=== PATIENT | female | born 1970 | race Caucasian/White ===

== ENCOUNTER 2016-07-31 10:21 | Emergency (ER) | payer OTHER ==
[~2016-07-31] VITALS: Ht 167.6 cm; Wt 53.8 kg
[2016-07-31 10:34] VITALS: BP 108/68; PULSE 57; RESP 16; TEMP 98.3; O2SAT 100
[2016-07-31] MEDS ORDERED: XANA1TAB2 PO (10:47)
[2016-07-31] MEDS ORDERED: AMIT10TA6 PO (10:47)
--- NOTE | 2016-07-31 11:14 | PD ---
HPI Chief Complaint: GI Complaint Time Seen by Provider: 10:47 Travel History International Travel<30 days: No Contact w/Intl Traveler<30days: No Traveled to known affect area: No History of Present Illness HPI 45yo F with PMH of IBS and anxiety presents to the ED with c/o nonbloody diarrhea for 6 days. States occasional abdominal cramping. Denies any fever, chest pain, sob, n/v, focal weakness or numbness, urinary complaints, vaginal bleeding or discharge. Also states she feels very anxious and has been out of xanax and amitriptyline for a few weeks. States she just have not picked them [place]. PFSH Past Medical History Hx Anticoagulant Therapy: No Anxiety: Yes Diabetes: No Gastrointestinal Disorders: Yes (IBS) Influenza Vaccination: No ?: Not Social History Alcohol Use: No Tobacco Use: Yes (E-CIG) Substance Use: No Allergies-Medications (Allergen,Severity, Reaction): Coded Allergies: No Known Allergies (Unverified , 07/31/16) Reported Meds & Prescriptions Reported Meds & Active Scripts Active Reported Xanax (Alprazolam) 1 Mg Tab 1 Mg PO BID PRN Amitriptyline (Amitriptyline HCl) 10 Mg Tab 10 Mg PO HS Review of Systems Except as stated in HPI: all other systems reviewed are Neg Physical Exam Narrative GENERAL: 45yo F not in distress. SKIN: Focused skin assessment warm/dry. HEAD: Atraumatic. Normocephalic. CARDIOVASCULAR: Regular rate and rhythm. No murmur appreciated. RESPIRATORY: No accessory muscle use. Clear to auscultation. Breath sounds equal bilaterally. GASTROINTESTINAL: Abdomen soft, non-tender, nondistended. No rebound tenderness or guarding. MUSCULOSKELETAL: No obvious deformities. No clubbing. No cyanosis. No edema. NEUROLOGICAL: Awake and alert. No obvious cranial nerve deficits. Motor grossly within normal limits. Normal speech. PSYCHIATRIC: Appropriate mood and affect; insight and judgment normal. Data Data Last Documented VS Vital Signs Date Time Temp Pulse Resp B/P Pulse Ox O2 Delivery O2 Flow Rate FiO2 07/31/16 12:22 54 16 118/75 100 Room Air 07/31/16 10:34 98.3 Orders Complete Blood Count With Diff (07/31/16 11:07) Comprehensive Metabolic Panel (07/31/16 11:07) Ed Urine Pregnancytest Poc (07/31/16 11:07) Sodium Chlor 0.9% 1000 Ml Inj (Ns 1000 M (07/31/16 11:15) Lorazepam Inj (Ativan Inj) (07/31/16 11:15) Labs Laboratory Tests Test 07/31/16 11:22 White Blood Count 6.7 TH/MM3 Red Blood Count 4.76 MIL/MM3 Hemoglobin 13.8 GM/DL Hematocrit 40.1 % Mean Corpuscular Volume 84.4 FL Mean Corpuscular Hemoglobin 28.9 PG Mean Corpuscular Hemoglobin 34.3 % Concent Red Cell Distribution Width 12.1 % Platelet Count 280 TH/MM3 Mean Platelet Volume 7.9 FL Neutrophils (%) (Auto) 67.4 % Lymphocytes (%) (Auto) 25.6 % Monocytes (%) (Auto) 6.3 % Eosinophils (%) (Auto) 0.5 % Basophils (%) (Auto) 0.2 % Neutrophils # (Auto) 4.6 TH/MM3 Lymphocytes # (Auto) 1.7 TH/MM3 Monocytes # (Auto) 0.4 TH/MM3 Eosinophils # (Auto) 0.0 TH/MM3 Basophils # (Auto) 0.0 TH/MM3 CBC Comment DIFF FINAL Differential Comment Sodium Level 144 MEQ/L Potassium Level 3.8 MEQ/L Chloride Level 110 MEQ/L Carbon Dioxide Level 28.4 MEQ/L Anion Gap 6 MEQ/L Blood Urea Nitrogen 18 MG/DL Creatinine 0.79 MG/DL Estimat Glomerular Filtration 79 ML/MIN Rate Random Glucose 94 MG/DL Calcium Level 8.0 MG/DL Total Bilirubin 0.3 MG/DL Aspartate Amino Transf 13 U/L (AST/SGOT) Alanine Aminotransferase 19 U/L (ALT/SGPT) Alkaline Phosphatase 51 U/L Total Protein 6.3 GM/DL Albumin 3.1 GM/DL [facility] Medical Decision Making Medical Screen Exam Complete: Yes Emergency Medical Condition: Yes Differential Diagnosis Anxiety vs. dehydration vs. enteritis vs. IBS exacerbation Narrative Course 45yo F with nonbloody diarrhea for 6 days. Pt has anxiety and IBS and has been out of her medications. Abdominal exam is benign. Will check labs for signs of dehydration and give NS IVF and ativan. Labs reviewed, no leukocytosis. BUN/creatinine normal. Pt given ativan 1mg and NS IVF x1. Pt reevaluated at bedside and feels better. Abdomen still nontender. Return precautions given. Diagnosis Primary Impression: Diarrhea Qualified Code: R19.7 - Diarrhea, unspecified type Patient Instructions: General Instructions Departure Forms: Tests/Procedures Additional Instructions: Please follow up with your PMD in 3-7 days. Return to the ED if symptoms worsen. Med/Other Pt SpecificInfo: No Change to Meds Disposition: 01 DISCHARGE HOME Condition: Stable Alise Faustin DO Jul 31, 2016 11:14
[2016-07-31] MEDS ORDERED: LORazepam 2 MG/ML VIAL IV PUSH ONE (11:15)
[2016-07-31] MEDS ORDERED: SODIUM CHLOR 0.9% 1000 ML INJ 1,000 ML IV ONE (11:15)
[2016-07-31 11:37] LABS: AUTOMATED NEUTROPHIL # 4.6 TH/MM3 (1.8-7.7); BASOPHIL % 0.2 % (0.0-2.0); EOSINOPHIL % 0.5 % (0.0-4.0); HEMATOCRIT 40.1 % (35.0-46.0); HEMO FLAGS DIFF FINAL; LYMPH % 25.6 % (9.0-44.0); LYMPHOCYTE # 1.7 TH/MM3 (1.0-4.8); MEAN CELL VOLUME 84.4 FL (80.0-100.0); MEAN CORPUSCULAR HEMOGLOBIN 28.9 PG (27.0-34.0); MEAN CORPUSCULAR HGB CONC 34.3 % (32.0-36.0); MONO % 6.3 % (0.0-8.0); NEUT % 67.4 % (16.0-70.0); PLATELET COUNT 280 TH/MM3 (150-450); RED BLOOD COUNT 4.76 MIL/MM3 (4.00-5.30); RED CELL DISTRIBUTION WIDTH 12.1 % (11.6-17.2); WHITE BLOOD COUNT 6.7 TH/MM3 (4.0-11.0)
[2016-07-31 11:49] LABS: CHLORIDE 110 MEQ/L (98-107); POTASSIUM 3.8 MEQ/L (3.5-5.1); SODIUM (NA) 144 MEQ/L (136-145)
[2016-07-31 11:55] LABS: ANION GAP 6 MEQ/L (5-15); BICARBONATE 28.4 MEQ/L (21.0-32.0); BLOOD UREA NITROGEN 18 MG/DL (7-18)
[2016-07-31 11:57] LABS: ALT (GPT) 19 U/L (10-53); AST (GOT) 13 U/L (15-37)
[2016-07-31 11:58] LABS: GLOMERULAR FILTRATION RATE 79 ML/MIN (>89)
[2016-07-31 11:59] LABS: TOTAL BILIRUBIN ADULT 0.3 MG/DL (0.2-1.0)
[2016-07-31 12:00] LABS: ALKALINE PHOSPHATASE 51 U/L (45-117)
[2016-07-31 12:22] VITALS: BP 118/75; PULSE 54; RESP 16; O2SAT 100
== END 2016-07-31 13:23 | disposition home or self-care (01) ==
LOC: PHED 10:21
DX: R19.7 Diarrhea, unspecified (principal); R10.9 Unspecified abdominal pain; K58.9 Irritable bowel syndrome, unspecified; Z72.0 Tobacco use
CPT/HCPCS: 80053; 84703; 85025; 96374; 99284; J2060; J7030